=== PATIENT | male | born 1970 | race Caucasian/White ===

== ENCOUNTER 2018-07-01 21:26 | Emergency (ER) | payer OTHER ==
[2018-07-01 21:34] VITALS: BP 142/87; PULSE 65; TEMP 98.2; BMI 26.4
--- NOTE | 2018-07-01 21:34 | PDOC ---
Rapid Medical Evaluation Chief Complaint: Eye Problem Time Seen by Provider: 07/01/18 21:32 Medical Evaluation: Allergies Allergy/AdvReac Type Severity Reaction Status Date / Time No Known Allergies Allergy Verified 07/01/18 21:32 07/01/18 21:33 I have performed a brief in-person evaluation of this patient. The patient presents with a chief complaint of: foreign body to right eye. Patient report small piece of metal in right eye while using drill. States foreign body sensation Pertinent physical exam findings: NAD HEENT: + ejection of right eye even and unlabored breathing I have ordered the following: The patient will proceed to the ED for further evaluation. Discharge Disposition - Diagnosis Foreign body in eye - Referrals - Patient Instructions - Post Discharge Activity
--- NOTE | 2018-07-01 22:27 | PDOC ---
History of Present Illness - General Chief Complaint: Eye Problem Stated Complaint: EYE INJURY Time Seen by Provider: 07/01/18 21:32 - History of Present Illness Initial Comments: 07/01/18 22:24 48-year-old male without comorbidities presents for evaluation of right eye irritation. He states he was drilling a nail and felt a foreign body fly into his right eye earlier prior to coming to the emergency room. No visual changes he does have tearing and right eye irritation. Past History - Past Medical History Allergies/Adverse Reactions: Allergies Allergy/AdvReac Type Severity Reaction Status Date / Time No Known Allergies Allergy Verified 07/01/18 21:32 Home Medications: Ambulatory Orders Tobramycin 0.3% Ophth Soln [Tobrex Ophthalmic Solution -] 1 drop OD Q4HWA 5 Days #1 bottle 07/01/18 COPD: No - Suicide/Smoking/Psychosocial Hx Smoking History: Never smoked Review of Systems - Review of Systems HEENTM: Yes: See HPI, Tearing. No: Eye Pain, Blurred Vision, Recent change in vision, Double Vision *Physical Exam - Vital Signs Last Vital Signs Temp Pulse Resp BP Pulse Ox 98.2 F 65 18 142/87 98 07/01/18 21:32 07/01/18 21:32 07/01/18 21:32 07/01/18 21:32 07/01/18 21:32 - Physical Exam Comments: 07/01/18 22:25 HEAD: NC/AT EYES: Conjuntiva normal and left eye injected in right eye, fluorescein stain done after tetracaine drops instilled in right eye there is a small corneal abrasion in the middle of the eye I do not appreciate a foreign body. MS: Full ROM in all joints without edema NEUROLOGIC: No gross sensory or motor deficits, NVID SKIN: Normal color and temperature no lesions or rashes Moderate Sedation - Procedure Monitoring Vital Signs: Procedure Monitoring Vital Signs Temperature 98.2 F 07/01/18 21:32 Pulse Rate 65 07/01/18 21:32 Respiratory Rate 18 07/01/18 21:32 Blood Pressure 142/87 07/01/18 21:32 O2 Sat by Pulse Oximetry (%) 98 07/01/18 21:32 *DC/Admit/Observation/Transfer Diagnosis at time of Disposition: Corneal abrasion Diagnosis at time of Disposition: (Ruled Out): Foreign body in eye - Discharge Dispostion Disposition: HOME Condition at time of disposition: Stable Decision to Admit order: No - Referrals Referrals: Thu Tyler MD [Staff Physician] - - Patient Instructions Printed Discharge Instructions: DI for Corneal Abrasion, Corneal Abrasion Additional Instructions: Return to the emergency room for worsening symptoms. Follow-up with ophthalmology tomorrow for further evaluation and treatment options please use the antibiotic drops as directed - Post Discharge Activity
== END 2018-07-01 22:36 | disposition home or self-care (01) ==
LOC: JERFT 21:26
DX: S05.01XA Injury of conjunctiva and corneal abrasion without foreign body, right eye, initial encounter (principal); W29.8XXA Contact with other powered hand tools and household machinery, initial encounter; Y93.89 Activity, other specified; Y92.89 Other specified places as the place of occurrence of the external cause; Y99.8 Other external cause status
CPT/HCPCS: 99281-25

== ENCOUNTER 2024-01-22 20:19 | Emergency (ER) | payer OTHER ==
[2024-01-22 20:25] VITALS: BP 154/104; PULSE 69; RESP 18; TEMP 98.4; BMI 26.6
[2024-01-22] MEDS ORDERED: CEPHALEXIN MONOHYDRATE 500 MG CAPSULE (UD) ONE (21:58)
[2024-01-22] MEDS ORDERED: DOXYCYCLINE HYCLATE 100 MG CAPSULE PO ONE (21:59)
[2024-01-22 22:01] LABS: BASO % 0.9 % (0-2.0); EOS % 2.2 % (0-4.5); HEMATOCRIT 40.9 % (35.4-49); HEMOGLOBIN 13.4 GM/dL (11.7-16.9); LYMPH % 20.1 % (8-40); MCH 30.1 pg (25.7-33.7); MCHC 32.7 g/dl (32.0-35.9); MEAN CELL VOLUME 91.9 fl (80-96); MEAN PLT VOLUME 7.5 fl (7.5-11.1); MONO % 10.4 % (3.8-10.2); NEUT % 66.4 % (42.8-82.8); PLATELET COUNT 318 10^3/uL (134-434); RBC 4.45 M/mm3 (4.00-5.60); RDW 11.9 % (11.9-15.9); WHITE BLOOD COUNT 7.5 K/mm3 (4.0-10.0)
[2024-01-22] MEDS: CEPHALEXIN MONOHYDRATE 500 MG CAPSULE (UD) PO ONE (22:07)
[2024-01-22] MEDS: DOXYCYCLINE HYCLATE 100 MG CAPSULE PO ONE (22:07)
[2024-01-22 22:27] LABS: POTASSIUM 4.3 mmol/L (3.5-5.1)
[2024-01-22 22:29] LABS: CALCIUM 9.6 mg/dL (8.5-10.1)
[2024-01-22 22:30] LABS: BLOOD UREA NITROGEN 14.9 mg/dL (7-18)
[2024-01-22 22:33] LABS: CREATININE 0.8 mg/dL (0.55-1.3)
[2024-01-22 22:57] LABS: ERYTHROCYTE SEDIMENTATION RATE 65 mm/hr (0-20)
== END 2024-01-22 23:30 | disposition home or self-care (01) ==
LOC: JER 20:19
DX: L03.012 Cellulitis of left finger (principal)
CPT/HCPCS: 36415; 73140-TC-LT-FY; 76882-TC-LT; 80048; 85025; 85651; 86140; 99285-25